=== PATIENT | female | born 1965 | race Caucasian/White ===

== ENCOUNTER → 2017-05-06 | Outpatient (CLI) | payer OTHER | LOC: FIMAGING 15:54 | PROVIDERS: ATTEND Plastic Surgery | DX: R59.9 Enlarged lymph nodes, unspecified (principal); Z90.13 Acquired absence of bilateral breasts and nipples ==

== ENCOUNTER → 2017-06-15 | Outpatient (CLI) | payer OTHER ==
[~2017-06-15] MED LIST: LIDOCAINE 1% 300 MG/30 ML SDV ONE
== END ==
LOC: FIMAGING 09:52
PROVIDERS: ATTEND Surgery
PROC: 07B Lymphatic and Hemic Systems, Excision (ICD-10-PCS; principal; 2017-06-15)
DX: C77.0 Secondary and unspecified malignant neoplasm of lymph nodes of head, face and neck (principal)

== ENCOUNTER 2017-06-30 13:03 | Observation (INO) | payer OTHER ==
[2017-06-30] MEDS ORDERED: ASPIRIN 81 MG CHEWABLE TAB PO ONE (13:28)
--- NOTE | 2017-06-30 13:33 | EDPHY ---
H & P Time Seen by Provider: 06/30/17 13:24 HPI/ROS: CHIEF COMPLAINT: Chest pain HISTORY OF PRESENT ILLNESS: This patient is a 52 y/o female with h/o breast cancer arriving with her , complaining of a sharp stabbing left-sided chest pain onset this morning. This has worsened throughout the day, and she has a squeezing sensation in her chest with accompanying intermittent stabbing feeling in her left shoulder blade area. She has increased pain with deep inspiration or certain movements. She has never had similar pain before. She is taking shallow breaths due to pain , but doesn't notice any particular shortness of breath. She took two oxycodone around 11:15, without much relief. She denies pain or swelling in her calves, headache, fever, abdominal pain, diarrhea, vomiting, urinary complaints , or other associated symptoms. The patient was diagnosed with breast cancer in November 2014 and underwent bilateral mastectomy 07/[address] More, general surgeon. She chose not to undergo chemotherapy or radiation following the procedure. She had a biopsy two weeks ago under her right collarbone which was positive for malignancy, and is scheduled for PET scan in the coming weeks. She is followed by Dr. Adams, oncologist. REVIEW OF SYSTEMS: A 10 point review of systems was performed and is negative with the exception of the elements mentioned in the history of present illness. Past Medical/Surgical History: Breast Cancer s/p bilateral mastectomy Social History: Oncologist: Dr. Raquel Rodriguez Lives in [place] Smoking Status: Never smoked Physical Exam: General Appearance: Alert, appears in pain intermittently. Eyes: Pupils equal and round, no conjunctival pallor or injection ENT, Mouth: Mucous membranes moist Neck: Normal inspection Respiratory: Swelling under right clavicle, lungs are clear to auscultation Cardiovascular: Regular rate and rhythm Gastrointestinal: Abdomen is soft and non- tender Neurological: A&O, nonfocal, normal gait Skin: Warm and dry, no rash Extremities: Nontender, no pedal edema. No calf swelling or tenderness. Psychiatric: Mood and affect normal Constitutional: Initial Vital Signs Temperature (C) 37 C 06/30/17 13:13 Heart Rate 92 06/30/17 13:13 Respiratory Rate 16 06/30/17 13:13 Blood Pressure 121/90 H 06/30/17 13:13 O2 Sat (%) 96 06/30/17 13:13 O2 Delivery Mode Room Air Allergies/Adverse Reactions: adhesive Allergy (Verified 06/30/17 13:16) ADHESIV Allergy (Uncoded 06/30/17 13:16) SEASONAL ALLERGIES Allergy (Uncoded 06/30/17 13:16) SOME METALS Allergy (Uncoded 06/30/17 13:16) Home Medications: Medication Instructions Recorded Naltrexone 4.5 mg PO DAILY 06/30/17 Ibuprofen [Motrin (*)] 600 mg PO Q8 PRN 06/30/17 Nature Thyroid 3 gr PO DAILY 06/30/17 Medical Decision Making - Diagnostics EKG Interpretation: EKG interpreted by me reveals sinus rhythm, rate 95, borderline T abnormalities in anterior leads. Imaging Results: Imaging Impressions Chest/Thorax CTA 06/30/17 13:38 Impression: 1. No evidence of pulmonary embolus using CT protocol. 2. Soft tissue mass with associated lytic lesion right mid sternum. 3. Right axillary and subpectoral lymphadenopathy. 4. Small sclerotic focus inferior anterior T4 segment. Findings discussed with Berenice Sawant M.D. at 15:42 hour, 06/30/2017. Imaging: Discussed imaging studies w/ call or contact centre team leader Radiologist ED Course/Re-evaluation: This patient with metastatic breast cancer presents with left-sided chest pain and tachycardia, with a heart rate of 95-100 while I am in the room. CT pulmonary angiogram indicated to rule out pulmonary embolism, as I have a high suspicion for PE. 15:[address] Cano, radiologist. CTA negative for PE. Soft tissue mass with associated lytic lesion right mid sternum and right axillary and subpectoral lymphadenopathy noted. Results discussed with the patient. She states that she is having debilitating pain and does not feel safe going home. Dilaudid 0.5 mg IV x2 given. Toradol 15 mg IV ordered. The patient is followed by Dr. Adams, oncologist, and is to follow up for PET scan soon. D-dimer and Troponin negative. I do not suspect acute coronary syndrome in this patient with atypical pain and prolonged symptoms. EKG reveals no evidence ischemia or dysrhythmia. Likely musculoskeletal etiology of pain. 16:[address] Rizzo, hospitalist. She accepts admission for chest pain. Differential Diagnosis: Differential diagnosis includes though it is not limited to pneumonia, pneumothorax, pulmonary embolism, aortic dissection, pericarditis, acute coronary syndrome. - Data Points Laboratory Results: Laboratory Results 06/30/17 13:30 06/30/17 13:30 06/30/17 06/30/17 06/30/17 13:30 13:30 13:30 WBC RBC Hgb Hct MCV MCH MCHC RDW Plt Count MPV Neut % (Auto) Lymph % (Auto) [place] % (Auto) Eos % (Auto) Baso % (Auto) Nucleat RBC Rel Count Absolute Neuts (auto) Absolute Lymphs (auto) Absolute Monos (auto) Absolute Eos (auto) Absolute Basos (auto) Absolute Nucleated RBC Immature Gran % Immature Gran # D-Dimer 0.29 ug/mLFEU ug/mLFEU (0.00-0.50) Sodium 143 mEq/L mEq/L (134-144) Potassium 4.6 mEq/L mEq/L (3.5-5.2) Chloride 108 mEq/L mEq/L (97-110) Carbon Dioxide 25 mEq/l mEq/l (22-31) Anion Gap 10 mEq/L mEq/L (8-16) BUN 6 mg/dL L mg/dL (7-23) Creatinine 0.6 mg/dL mg/dL (0.6-1.0) Estimated GFR > 60 Glucose 121 mg/dL H mg/dL (70-100) Calcium 10.1 mg/dL mg/dL (8.5-10.4) Troponin I < 0.012 ng/mL ng/mL (0.000-0.034) NT-Pro-B Natriuret Pep 145 pg/mL H pg/mL (0-125) 06/30/17 13:30 WBC 6.47 10^3/uL 10^3/uL (3.80-9.50) RBC 4.70 10^6/uL 10^6/uL (4.18-5.33) Hgb 14.7 g/dL g/dL (12.6-16.3) Hct 43.4 % % (38.0-47.0) MCV 92.3 fL fL (81.5-99.8) MCH 31.3 pg pg (27.9-34.1) MCHC 33.9 g/dL g/dL (32.4-36.7) RDW 12.1 % % (11.5-15.2) Plt Count 272 10^3/uL 10^3/uL (150-400) MPV 9.9 fL fL (8.7-11.7) Neut % (Auto) 65.8 % % (39.3-74.2) Lymph % (Auto) 24.4 % % (15.0-45.0) [place] % (Auto) 6.2 % % (4.5-13.0) Eos % (Auto) 2.8 % % (0.6-7.6) Baso % (Auto) 0.6 % % (0.3-1.7) Nucleat RBC Rel Count 0.0 % % (0.0-0.2) Absolute Neuts (auto) 4.26 10^3/uL 10^3/uL (1.70-6.50) Absolute Lymphs (auto) 1.58 10^3/uL 10^3/uL (1.00-3.00) Absolute Monos (auto) 0.40 10^3/uL 10^3/uL (0.30-0.80) Absolute Eos (auto) 0.18 10^3/uL 10^3/uL (0.03-0.40) Absolute Basos (auto) 0.04 10^3/uL 10^3/uL (0.02-0.10) Absolute Nucleated RBC 0.00 10^3/uL 10^3/uL (0-0.01) Immature Gran % 0.2 % % (0.0-1.1) Immature Gran # 0.01 10^3/uL 10^3/uL (0.00-0.10) D-Dimer Sodium Potassium Chloride Carbon Dioxide Anion Gap BUN Creatinine Estimated GFR Glucose Calcium Troponin I NT-Pro-B Natriuret Pep Medications Given: Discontinued Medications Aspirin (Aspirin) 324 mg PO EDNOW ONE Stop: 06/30/17 13:29 Last Admin: 06/30/17 13:30 Dose: Not Given Hydromorphone HCl (Dilaudid) 0.5 mg IVP EDNOW ONE Stop: 06/30/17 13:40 Last Admin: 06/30/17 13:59 Dose: 0.5 mg Hydromorphone HCl (Dilaudid) 0.5 mg IVP EDNOW ONE Stop: 06/30/17 15:40 Last Admin: 06/30/17 15:44 Dose: 0.5 mg Sodium Chloride (Ns) 1,000 mls @ 0 mls/hr IV ONCE ONE; Wide Open PRN Reason: Protocol Stop: 06/30/17 13:39 Last Admin: 06/30/17 13:59 Dose: 1,000 mls Ketorolac Tromethamine (Toradol) 15 mg IVP EDNOW ONE Stop: 06/30/17 15:45 Last Admin: 06/30/17 15:59 Dose: 15 mg Departure - Departure Disposition: [facility] Inpatient Acute Clinical Impression: Chest pain Qualifiers: Chest pain type: other chest pain Qualified Code(s): R07.89 - Other chest pain Condition: Fair Report Scribed for: Berenice Sawant Report Scribed by: Teresa Ch Date of Report: 06/30/17 Time of Report: 13:33 Physician Review and Approval Statement: 06/30/17 13:33 Portions of this note were transcribed by a medical equipment repairer. I personally performed a history, physical exam, medical decision making, and confirmed accuracy of information the transcribed note.
--- NOTE | 2017-06-30 13:36 | CPEKG ---
Heart Rate: 95 RR Interval: 632 P-R Interval: 132 QRSD Interval: 80 QT Interval: 352 QTC Interval: 443 P [place]: 60 QRS [place]: 63 T Wave [place]: 12 EKG Severity - BORDERLINE ECG - EKG Impression: SINUS RHYTHM EKG Impression: BORDERLINE T ABNORMALITIES, ANTERIOR LEADS Electronically Signed By: Berenice Sawant 30-Jun-2017 17:30:33
[2017-06-30] MEDS ORDERED: NS 1,000 ML IV ONE (13:38)
[2017-06-30 13:39] LABS: PLATELET COUNT 272 10^3/uL (150-400)
[2017-06-30] MEDS ORDERED: HYDROmorphONE/DILAUDID 1 MG/ML INJ IVP ONE ×2 (13:39→15:39)
[2017-06-30] MEDS ORDERED: IOPAMIDOL (ISOVUE 370) 100 ML BTL IV ONE (14:44)
[2017-06-30] MEDS ORDERED: KETOROLAC 15 MG/1 ML SDV IVP ONE (15:44)
[2017-06-30] MEDS ORDERED: ONDANSETRON 4 MG/2 ML VIAL IVP PRN (16:16)
[2017-06-30] MEDS ORDERED: ONDANSETRON DISINTEGRATING 4 MG TAB PO PRN (16:16)
[2017-06-30] MEDS: KETOROLAC 30 MG/1 ML SDV IVP PRN (18:33)
[2017-06-30] MEDS: NS 1,000 ML IV SCH (18:33)
[2017-06-30] MEDS: DEXAMETHASONE 4 MG/ML VIAL IVP SCH (18:33)
--- NOTE | 2017-06-30 18:51 | GHP ---
[f rep st] HISTORY AND PHYSICAL DATE OF ADMISSION: 06/30/2017 CHIEF COMPLAINT: Atypical chest pain. HISTORY OF PRESENT ILLNESS: A 52-year-old female with a history of invasive ductal breast cancer, status post bilateral mastectomy, who presents with left- sided chest pain today. She was lying in bed when this occurred and said it felt like a wave of squeezing sensation in her chest to her left shoulder blade area. She denies associated numbness or tingling. It did not radiate to her arm. She reports difficulty breathing when the pain became so severe. Pain is worse with movement. She reports having pain in her chest intermittently that moves back and forth. Sometimes it is cramping, sometimes is burning. It was hard to get a clear history. She took 2 oxycodone at 11:15 without much relief. She was diagnosed with breast cancer in November 2014, underwent bilateral mastectomy by Dr. More. She chose to not undergo chemo or radiation. She underwent a right intra-clavicular mass biopsy on 06/15/2017 that showed recurrent disease. She is scheduled for PET scan per her primary oncologist, Dr. Adams. She has had reconstructive breast surgeries, last being in November. She denies any redness, swelling or pain over the breast. No fevers, chills, or sweats. REVIEW OF SYSTEMS: I completed a 10-point review of systems, negative except as noted in HPI. PAST MEDICAL HISTORY: 1. HER2 positive invasive ductal carcinoma, status post bilateral mastectomy, declined chemoradiation, now with recurrent disease. 2. Hypothyroidism. PAST SURGICAL HISTORY: Bilateral mastectomy and breast biopsy in 1997, liposuction. FAMILY HISTORY: Father with bladder cancer, hypertension, diabetes, heart disease, arthritis. SOCIAL HISTORY: Lives in [place] with her partner. No alcohol or tobacco. Previously smoke marijuana, is now using CBD oil. ALLERGIES: Adhesive, seasonal allergies, some metals. PHYSICAL EXAMINATION: VITAL SIGNS: Temperature 36.8, blood pressure 130/79, heart rate 90s, respirations 18 and 98% on 2 L. GENERAL: Lying in bed, tearful , anxious. HEENT: PERRLA. EOMI. Oropharynx clear. Mildly dry mucous membranes. CV: Regular rate and rhythm. No murmurs, gallops, rubs. LUNGS: Clear to auscultation anteriorly. GI: Soft, nontender, nondistended. Positive bowel sounds. : No suprapubic tenderness. MUSCULOSKELETAL: Tenderness over the sternum, palpable mass. Also, pain over left sternum with palpation. Breasts without redness, swelling or TTP. NEURO: 2 through 12 intact. PSYCHIATRIC: Alert and oriented x3. Anxious, tearful. LABS: WBC 6, hemoglobin 14, hematocrit 43, platelets 272. D-dimer is 0.27. Sodium 143, potassium 4.6, chloride 108, carbon dioxide 25, anion gap is 10, creatinine 0.6, glucose is 121, calcium is 10.1. Troponin less than 0.012. BNP is 145. EKG, personally reviewed by me, ST flattening anterior leads. CTA negative for PE. There is a soft tissue mass with destruction of the right mid sternum measuring 4 x 5 x 2.7 cm. Right axillary and subpectoral lymphadenopathy. ASSESSMENT AND PLAN: 1. Atypical chest pain: Suspect this is secondary to a soft tissue mass with destruction of her sternum. No evidence of infection of either breasts. CTA was negative for PE. Initially, the EKG and troponin negative and her symptoms are more consistent with musculoskeletal versus inflammation. We will repeat troponin to be thorough. We will treat with Toradol and IV dexamethasone. Also with a PPI to protect the stomach. 2. Metastatic invasive ductal carcinoma: Had previously declined chemo and radiation. She is followed by Dr. Adams. Plan for PET scan as an outpatient. 3. Mild hypercalcemia. Calcium is 10.1. IV hydration overnight. 4. Diet: Regular. 5. DVT prophylaxis: SCDs given on both steroids and Toradol. DISPOSITION: The patient warrants observation and admission given acute chest pain and need for pain control with IV Toradol and steroids. /[id number]/MODL MTDD
[2017-06-30] MEDS: PANTOPRAZOLE SODIUM 40 MG TAB PO SCH (21:46)
[2017-06-30] MEDS: NALTREXONE 4.5 MG PO SCH (21:48)
[2017-07-01] MEDS: KETOROLAC 30 MG/1 ML SDV IVP PRN ×3 (00:23→12:58)
[2017-07-01] MEDS: DEXAMETHASONE 4 MG/ML VIAL IVP SCH ×4 (00:23→17:49)
[2017-07-01] MEDS: NS 1,000 ML IV SCH (05:16)
[2017-07-01 08:29] VITALS: O2SAT 94
[2017-07-01] MEDS ORDERED: ENOXAPARIN 40 MG/0.4 ML SYR SC SCH (09:00)
[2017-07-01] MEDS ORDERED: NATURE THYROID PO SCH (09:00)
--- NOTE | 2017-07-01 09:38 | ASMTCASEMG ---
Living Arrangements What is your living Answers: With Partner arrangement? Who do you live with? Type Of Residence What kind of residence do Answers: House you live in? Discharge Plan Comments Coordination Status Comments Notes: Pt is a 52 y/o female admitted w/ left sided chest pain. CM spoke w/ GERARDO Barahona regarding d/c POC. Anticipates that pt will d/c independent when medically stable w/ supportive partner. CM available for d/c needs should they arise. Date Signed: 07/01/2017 09:38 AM Electronically Signed By:TRINI Cervantes
[2017-07-01] MEDS ORDERED: LIDOCAINE 5% 1 EA PATCH TD SCH (11:15)
[2017-07-01] MEDS ORDERED: NATURE THYROID 65 MG PO SCH (11:30)
[2017-07-01] MEDS: ACETAMINOPHEN 325 MG TAB PO PRN ×2 (11:32→18:07)
[2017-07-01] MEDS: NALTREXONE 4.5 MG PO SCH (11:57)
[2017-07-01] MEDS: PANTOPRAZOLE SODIUM 40 MG TAB PO SCH (11:57)
[2017-07-01 17:33] VITALS: BP 122/72; PULSE 95; RESP 18; TEMP 98.5
--- NOTE | 2017-07-01 18:49 | PDDCSUM ---
Discharge Summary Discharge Summary: DISCHARGE DIAGNOSES: -pain of cancer with a mass lesion in her the upper left chest wall and invading the right upper ribs and sternum -metastatic breast cancer stage IV with recently diagnosed recurrence after initial mastectomy several months ago PROCEDURES: CT scan of chest HOSPITAL COURSE SUMMARY: This patient was diagnosed just recently with recurrent breast cancer and had lymph node biopsies from her axilla with tumor studies pending. Also she is to get a PET scan in near future but this is not scheduled yet. She presents at this time with sudden onset of pain in the upper left chest wall anteriorly. This pain does not have features of heart disease, she does not have fever or cough shortness of breath, and has typical features of chest wall pain. It is very Rue reproducible with palpation and movements. A CT scan of the chest was done showing a large tumor in soft tissues of the anterior chest wall invading ribs and the sternum with a fair bit of bony destruction in that area. There is no associated pleural effusion. After review of this finding with the patient he was started on pain reducing treatments including steroids, nonsteroidal anti-inflammatories, Lidoderm patch , Tylenol. The patient prefers to avoid narcotics at this time and in fact was taking some now tracts on therapy at home which she just stopped a couple of days ago. There has been some issue with narcotic prescribed medicines in the past. This all resulted in significant improvement in her pain. She has gone from 9-10 his pain on the scale to 2-5. She finds this very tolerable right now is able to get up and move around much more easily. Her says she looks much more comfortable. We talked about the possibility that a neuropathic pain agent may also be helpful but I felt it was better to wait at this time give her a few days home before we added yet another medicine. She is acting to use some oral narcotic as needed when she has breakthrough pain so I have prescribed some Dilaudid for her to use at home as needed. The patient is stable for discharge home at this point. I did review her case with Dr. Aliyah Ayers partner of her oncologist Dr. Adams. The patient will follow up in clinic this coming week and she will get her PET scan scheduled. PENDING TEST RESULTS: None MEDICATION CHANGES: Addition of dexamethasone 4 mg four times daily, Lidoderm patch, and she will continue ibuprofen and Tylenol FOLLOW-UP PLAN: With Dr. Raquel Adams Greater than 35 minutes bedside and care coordination time today
[2017-07-01] MEDS ORDERED: PATCH REMOVAL 1 EA PATCH TD SCH (21:00)
== END 2017-07-01 18:18 | disposition home or self-care (01) ==
LOC: F2W 17:19
PROVIDERS: ADMIT Internal Medicine; ATTEND Internal Medicine
PROC: 3E0337Z Introduction of Electrolytic and Water Balance Substance into Peripheral Vein, Percutaneous Approach (ICD-10-PCS; principal; 2017-06-30)
DX: C79.51 Secondary malignant neoplasm of bone (principal); R59.0 Localized enlarged lymph nodes; G89.3 Neoplasm related pain (acute) (chronic); E03.9 Hypothyroidism, unspecified; E83.52 Hypercalcemia; Z17.0 Estrogen receptor positive status [ER+]; Z85.3 Personal history of malignant neoplasm of breast; Z90.13 Acquired absence of bilateral breasts and nipples
CPT/HCPCS: 71275; 93005; 96361; 96374; 96375; 96376; 99285; G0378; J1100; J1170; J1650; J1885; Q9967

== ENCOUNTER → 2017-08-05 | Outpatient (CLI) | payer OTHER | LOC: FIMAGING 16:38 | PROVIDERS: ATTEND Internal Medicine Hematology & Oncology | DX: M25.511 Pain in right shoulder (principal); R22.31 Localized swelling, mass and lump, right upper limb ==

== ENCOUNTER 2018-09-09 05:53 | Day surgery (SDC) | payer OTHER ==
--- NOTE | 2018-09-08 21:52 | GHP ---
DATE OF ADMISSION: 09/09/2018 DATE OF SURGERY: On 09/09/2018, on the gynecology service. HISTORY OF PRESENT ILLNESS: Upon presentation, the patient is a 53-year-old G0, white female who is desiring a risk-reducing bilateral salpingo-oophorectomy due to positive BRCA1 gene as well as breast cancer stage IV. The patient has been on Lupron for hormone suppression since November of 2017 and fee ls very symptomatic on Lupron and is hoping to pursue ovarian suppression now with definitive surgery , so she can be off the Lupron. The patient is hopeful that significant joint tenderness and limitat ions might improve after stopping the Lupron. The patient is aware that these small joint discomfort s can just be related to the suppressed estrogen affect of the Lupron, which would also be a continui ng symptom as result of a BSO. The patient is thoroughly counseled as well as her about the risks and benefits of removing the tubes and ovaries. This risk-reducing surgery will also entail lo oking thoroughly in the abdomen and pelvis for any sites of potential intraabdominal cancer at this p oint. The patient has a large myomatous uterus but is not felt by the oncologist to have an increase d risk of uterine cancer and at this point does not want to undergo a more major surgery. Over time, the patient might pursue a laparoscopic hysterectomy if the pelvic pressure from the enlarged uterus becomes an issue. The patient has signed consent form for a laparoscopic BSO. The patient is aware that scar tissue can increase the intraoperative risks of laparoscopic surgery, and the patient has had a history of chlamydia. Otherwise, the patient has not had any prior abdominal surgeries and is counseled that essentially she has a low risk for adhesions. PAST MEDICAL HISTORY: Stage IV invasive ductal breast cancer, initially diagnosed as stage IIIA in A pril of 2014. The patient subsequently has had bone and gentry recurrence and neuroendocrine features . Extensive local regional recurrence in May 2017 with a large lytic sternal lesion. This respo nded to radiation. However, further recurrence again was noted shortly after the radiation. BRCA1 p ositive, hypothyroidism, myomatous uterus. PAST SURGICAL HISTORY: Bilateral mastectomy in 2014. In 2015 and , three reconstructive surgerie s. PAST OBSTETRIC HISTORY: Negative. PAST GYNECOLOGIC HISTORY: The patient had menarche at age 13 and had regular cycles up to the suppre ssion with Lupron in November 2017. The patient has had abnormal Pap smears and had a LEEP procedure in the past. The last Pap smear was done in May 2018 and was negative. The patient has a regular supportive long-term partner with her of 7 years. The patient has been increasingly less sex ually active over time. CURRENT MEDICATIONS: Nature Thyroid 2 grain daily, Arimidex, Lupron with last injection July. ALLERGIES: No known drug allergies. However, the patient has had sensitivity to some adhesions. SOCIAL HISTORY: The patient is not or has never been a smoker. The patient does not drink alcohol o r other drug use. She very sporadically uses marijuana for medical benefit. The patient does not dr ink caffeine. FAMILY HISTORY: The patient's father has high blood pressure and diabetes. Also has bladder cancer. The BRCA1 carrier status is suspected to come through the patient's father's side as a cousin has b reast cancer. Mother has arthritis. REVIEW OF SYSTEMS: The patient currently is bothered quite a bit with pain in the hands and gums and tight joints. The patient's right arm pain and swelling improved after the radiation. No current i ssues with weight loss or gain, no fever or chills, but notices night sweats with the Lupron. PHYSICAL EXAM: GENERAL APPEARANCE: The patient is a well-developed, well-nourished white female in no acute physical distress. Patient does have anxiety about undergoing another surgery. VITAL SIGNS : Blood pressure 102/68, weight 164 pounds. The patient is clinically afebrile. HEENT: No thyrome cornelius. No adenopathy, and the oropharynx is clear. LUNGS: Clear to auscultation bilaterally. CARDIO VASCULAR: Regular rate and rhythm. ABDOMEN: Soft and nontender. PELVIC: Not performed prior to s urgery. EXTREMITIES: Nontender and no edema. ASSESSMENT: Invasive ductal cancer, stage IV with BRCA1 carrier status. Hypothyroid, myomatous uter us, history of chlamydia, history of abnormal cervix with loop electrosurgical excision procedure. PLAN: Will proceed with laparoscopic risk-reducing bilateral salpingo-oophorectomy on September 09. The patient is hopeful for a good recovery as she has a trip planned on September 22 to [place]. The patient will receive preoperative antibiotics and will have on SCDs throughout the procedure. Th is was planned as an outpatient procedure. The patient has previously been given a prescription for 10 Oxy IR 5 mg tablets to use p.r.n. She will also regularly use ibuprofen, Tylenol. /[id number]/MODL
[2018-09-09] MEDS ORDERED: ceFAZolin 2 GM/DEXTROSE 100 ML IV ONE (06:11)
[2018-09-09] MEDS ORDERED: LR 1,000 ML IV ONE (06:12)
[2018-09-09] MEDS ORDERED: LIDOCAINE 1% 2 ML INJ ID PRN (06:12)
[2018-09-09] MEDS ORDERED: BUPIVACAINE/EPI 0.5% 30 ML SDV ONE (06:49)
--- NOTE | 2018-09-09 06:49 | PDANEPAE ---
ANE History of Present Illness B salpyngoophorectomy, hx of Breast cancer ANE Past Medical History - Cardiovascular History Hx Hypertension: No Hx Arrhythmias: No Hx Chest Pain: No Hx Coronary Artery / Peripheral Vascular Disease: No Hx CHF / Valvular Disease: No Hx Palpitations: No - Pulmonary History Hx COPD: No Hx Asthma/Reactive Airway Disease: No Hx Recent Upper Respiratory Infection: No Hx Oxygen in Use at Home: No Hx Sleep Apnea: No Sleep Apnea Screening Result - Last Documented: Negative Pulmonary History Comment: SEASONAL ALLERGIES. ALLERGY INDUCED ASTHMATIC EPISODES IN PAST - Neurologic History Hx Cerebrovascular Accident: No Hx Seizures: No Hx Dementia: No - Endocrine History Hx Diabetes: No Hypothyroid: Yes Obesity: no Endocrine History Comment: HYPOTHYROID - Renal History Hx Renal Disorders: No Renal History Comment: URGE INCONTINENCE - Liver History Hx Hepatic Disorders: No - Neurological & Psychiatric Hx Hx Neurological and Psychiatric Disorders: Yes Neurological / Psychiatric History Comment: ANXIETY. HX - DEPRESSION - Cancer History Hx Cancer: Yes Cancer History Comment: BREAST CANCER, s/p mastectomy and reconstruction - Congenital Disorder History Hx Congenital Disorders: No - GI History GERD: no Hx Gastrointestinal Disorders: No - Other Health History Other Health History: NO IV OR BP ON RT SIDE. MUSCLE VS JOINT ISSUES ? RELATED TO PREV MEDICATION FOR CA TREATMENT. EYE LID DERMATITIS. BRUISES EASILY. DEVELOPING CATARACTS - Chronic Pain History Chronic Pain: Yes (MUSCLES/JOINTS) - Surgical History Prior Surgeries: WOOD MASTECTOMY WITH REMVL LYMPH NODE ON RT WITH BREAST RECONSTRUCTION 2014. BREAST BX W/LOCAL AND VERSED. LIPOSUCTION UNDER LOCAL ANE Review of Systems Review of Systems: - Exercise capacity METS (RN): 4 METS ANE Patient History - Allergies Allergies/Adverse Reactions: gluten Allergy (Verified 09/09/18 06:15) ABD BLOATING Milk Containing Products [dairy] Allergy (Verified 09/09/18 06:15) WATER RETENTION - Home Medications Home Medications: Nature Thyroid 4 gr PO DAILY 06/30/17 [Last Taken 09/09/18 05:10] Anastrozole [Arimidex 1 mg (*)] 1 mg PO HS 08/23/18 [Last Taken 09/08/18 22:00] Herbals/Supplements -Info Only DAILY 08/27/18 [Last Taken 09/03/18] - Anes Hx Anes Hx: post operative nausea (after wisdom tooth extraction) - Smoking Hx Smoking Status: Never smoked - Alcohol Use Alcohol Use: None - Family Anes Hx Family Anes Hx: none Family Hx Anesthesia Complications: UNKNOWN ANE Labs/Vital Signs - Labs Result Diagrams: 09/09/18 06:38 - Vital Signs Blood Pressure: 129/86 Heart Rate: 98 Respiratory Rate: 16 O2 Sat (%): 95 Height: 170.18 cm Weight: 69.853 kg ANE Physical Exam - Airway Neck exam: FROM (c/o pain with motion) Mallampati Score: Class 2 - Pulmonary Pulmonary: clear to auscultation - Cardiovascular Cardiovascular: regular rate and rhythym - ASA Status ASA Status: II ANE Anesthesia Plan Anesthesia Plan: general endotracheal anesthesia
[2018-09-09] MEDS ORDERED: SILVER NITRATE APPLICATOR 1 APPL TP ONE (06:50)
[2018-09-09] MEDS ORDERED: SCOPOLAMINE HYDROBROMIDE 1 MG/3 DAYS PATCH TD ONE (06:57)
[2018-09-09] MEDS ORDERED: MIDAZOLAM 2 MG/2 ML VIAL IVP ONE (06:57)
[2018-09-09 06:58] LABS: PLATELET COUNT 286 10^3/uL (150-400)
[2018-09-09] MEDS ORDERED: PROPOFOL 200 MG/20 ML VIAL ONE ×4 (07:26→08:13)
[2018-09-09] MEDS ORDERED: DEXAMETHASONE 4 MG/ML VIAL ONE (07:26)
[2018-09-09] MEDS ORDERED: ROCURONIUM 50 MG/5 ML VIAL ONE (07:26)
[2018-09-09] MEDS ORDERED: fentaNYL 250 MCG/5 ML INJ ONE (07:27)
[2018-09-09] MEDS ORDERED: ESMOLOL HCL 100 MG/10 ML VIAL IV ONE (08:10)
[2018-09-09] MEDS ORDERED: ONDANSETRON 4 MG/2 ML VIAL ONE (08:15)
[2018-09-09] MEDS ORDERED: SUGAMMADEX SODIUM 200 MG/2 ML VIAL IVP ONE (08:59)
[2018-09-09] MEDS ORDERED: oxyCODONE IR 5 MG TAB PO PRN (09:06)
[2018-09-09] MEDS ORDERED: fentaNYL 100 MCG/2 ML INJ IVP PRN (09:06)
[2018-09-09] MEDS ORDERED: NALOXONE HCL 0.4 MG/ML INJ IVP PRN (09:06)
[2018-09-09] MEDS ORDERED: ONDANSETRON 4 MG/2 ML VIAL IVP PRN (09:06)
[2018-09-09] MEDS ORDERED: KETOROLAC 30 MG/1 ML SDV ONE (09:07)
[2018-09-09] MEDS ORDERED: ONDANSETRON DISINTEGRATING 4 MG TAB PO PRN (09:21)
--- NOTE | 2018-09-09 09:28 | POSTOPPROG ---
Post Op Note Date of Operation: 09/09/18 Surgeon: Sun Franco Grant Coordinator: Janeth Parker SA Anesthesiologist: Yogesh Bush MD Anesthesia: GET(General Endotracheal) Pre-op Diagnosis: BRCA I gene positive, invasive breast cancer Post-op Diagnosis: same Indication: cancer risk reduction Procedure: rrBSO Findings: uterine fibroids, flat scar in culdesac, no cancer signs - nl anatomy Inf/Abcess present in the surg proc area at time of surgery?: No Depth: Organ Space EBL: Minimal (25cc) Total fluids administered: 1000 Complications: none Specimen(s): pelvic washings, bilat tubes and ovaries
--- NOTE | 2018-09-09 09:47 | POSTANESTH ---
Post Anesthetic Evaluation Cardiovascular Status: Normal, Stable Respiratory Status: Normal, Stable Level of Consciousness/Mental Status: Can Participate in Eval Pain Control: Adequate, Prn Tx Ordered Nausea/Vomiting Control: Adequate, Prn Tx Ordered Complications Possibly Related to Anesthesia: None Noted
[2018-09-09 10:26] VITALS: BP 124/91
== END 2018-09-09 11:20 | disposition home or self-care (01) ==
LOC: COP 05:53 → EDSTATUS 07:15 → FSGY 11:20
PROVIDERS: ATTEND Obstetrics & Gynecology
PROC: 0UT74ZZ Resection of Bilateral Fallopian Tubes, Percutaneous Endoscopic Approach (ICD-10-PCS; principal; 2018-09-09 07:15)
PROC: 0UT24ZZ Resection of Bilateral Ovaries, Percutaneous Endoscopic Approach (ICD-10-PCS; principal; 2018-09-09 07:15)
DX: Z40.02 Encounter for prophylactic removal of ovary(s) (principal); Z15.02 Genetic susceptibility to malignant neoplasm of ovary; C79.51 Secondary malignant neoplasm of bone; Z85.3 Personal history of malignant neoplasm of breast; E03.9 Hypothyroidism, unspecified; Z90.13 Acquired absence of bilateral breasts and nipples
CPT/HCPCS: J0690; J1100; J1885; J2250; J2405; J2704; J3010